=== PATIENT | male | born 1950 | race Caucasian/White ===

== ENCOUNTER → 2016-11-11 | Outpatient (CLI) | payer MEDICARE ==
[~2016-11-11] MED LIST: ALLOPURINOL100 MG PO; FLEXERIL10 MG PO; NAPROXEN500 M1 PO
--- NOTE | 2016-11-11 15:39 | RADIOLOGY REPORT PS360 ---
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 Small endplate osteophytes are present at every level. The disc spaces are well-preserved. There are mild facet arthritic changes at L4-5 and L5-S1. No fracture or dislocation. No lytic or blastic change. Incidental vascular calcifications are noted. There is mild degenerative disc disease in the lower thoracic spine . IMPRESSION: 1. 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 2. Mild osteophytosis of the lumbar spine with mild facet arthritic change at L4-L5 and L5-S1 3. 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
== END ==
LOC: RAD 15:11
DX: M54.41 Lumbago with sciatica, right side (principal)